=== PATIENT | female | born 1945 | race Caucasian/White ===

== ENCOUNTER → 2018-06-23 | Outpatient (CLI) | payer MEDICARE ==
[~2018-06-23] MED LIST: LIDOCAINE 1% MDV 20ML VIAL As Ordered
== END ==
LOC: M RADPRO 10:33
DX: N60.11 Diffuse cystic mastopathy of right breast (principal); Z79.01 Long term (current) use of anticoagulants; Z88.0 Allergy status to penicillin; E78.00 Pure hypercholesterolemia, unspecified; F41.9 Anxiety disorder, unspecified; F32.9 Major depressive disorder, single episode, unspecified; E11.9 Type 2 diabetes mellitus without complications; I48.91 Unspecified atrial fibrillation; Z95.0 Presence of cardiac pacemaker; Z90.710 Acquired absence of both cervix and uterus; Z86.79 Personal history of other diseases of the circulatory system
CPT/HCPCS: 19081

== ENCOUNTER → 2023-04-03 | Outpatient (REF) | payer MEDICARE ==
[2023-04-05 01:55] LABS: C REACTIVE PROTEIN QUANTITATIV 2.3 MG/DL (<1.0)
== END ==
LOC: M LAB REF 16:44
PROVIDERS: ATTEND Nurse Practitioner Family
DX: R06.02 Shortness of breath (principal)

== ENCOUNTER → 2023-08-03 | Outpatient (REF) | payer MEDICARE | LOC: M LAB REF 12:46 | PROVIDERS: ATTEND Internal Medicine Pulmonary Disease | DX: J47.9 Bronchiectasis, uncomplicated (principal) ==

== ENCOUNTER 2024-10-01 15:35 | Emergency (ER) | payer MEDICARE ==
[~2024-10-01] VITALS: Ht 162.6 cm; Wt 109.0 kg
[2024-10-01] MEDS ORDERED: CLOB0.0548 TOP (20:27)
[2024-10-01] MEDS ORDERED: TRIA1CR80 TOP (20:27)
[2024-10-01] MEDS ORDERED: CLIN-250 PO (20:27)
[2024-10-01] MEDS ORDERED: BUSP10TA PO (20:27)
[2024-10-01] MEDS ORDERED: MAGN400T35 PO (20:35)
[2024-10-01] MEDS ORDERED: TACROLIMUS TOP (20:35)
[2024-10-01] MEDS: ONDANSETRON 4MG 2ML VIAL IV ONE (20:47)
[2024-10-01] MEDS: MORPHINE 4 MG/ML 1ML VIAL IV ONE (20:48)
[2024-10-01] MEDS ORDERED: LEVA45AE INH (20:52)
[2024-10-01] MEDS ORDERED: ACET300T52 PO (20:52)
[2024-10-01] MEDS ORDERED: FAMO20TA4 PO (20:52)
[2024-10-01] MEDS ORDERED: CLOP75TA2 PO (20:52)
[2024-10-01] MEDS ORDERED: MUPI2OI TOP (20:52)
[2024-10-01] MEDS ORDERED: TUMS500C PO (20:52)
[2024-10-01] MEDS ORDERED: DOCU100C16 PO (20:52)
[2024-10-01] MEDS ORDERED: NEMO30PE SC (20:52)
[2024-10-01] MEDS ORDERED: MONT10TA97 PO (20:52)
[2024-10-01] MEDS ORDERED: ASCO500T PO (20:52)
[2024-10-01] MEDS ORDERED: NITR0.4S14 SL (20:53)
[2024-10-01] MEDS ORDERED: LEVOTAB10 PO (20:55)
[2024-10-01] MEDS ORDERED: VITAD1000T PO (20:55)
[2024-10-01] MEDS ORDERED: FEXO-111 PO (20:55)
[2024-10-01] MEDS ORDERED: BUME1TAB3 PO (21:09)
[2024-10-01] MEDS ORDERED: CLOB5CR TOP (21:09)
[2024-10-01] MEDS ORDERED: SPIR-10 PO (21:09)
[2024-10-01] MEDS ORDERED: HOME MED LIST COMPLETE! XX SCH (21:15)
[2024-10-01 21:29] LABS: BASO # 0.1 10^3/uL (0.0-0.2); BASO % 1.1 % (0.0-1.0); EOS # 0.4 10^3/uL (0.0-0.5); EOS % 4.1 % (0.0-3.0); HEMOGLOBIN 14.6 g/dl (12.0-15.5); LYMPH # 2.4 10^3/uL (1.5-5.0); LYMPH % 22.9 % (24.0-44.0); MEAN CORPUSCULAR HEMOGLOBIN 34.8 pg (27.0-33.0); MEAN CORPUSCULAR VOLUME 102.6 fl (80.0-96.0); MONO # 0.9 10^3/uL (0.0-0.8); MONO % 8.9 % (2.0-8.0); NEUTROPHILS # 6.4 10^3/uL (1.5-8.5); NEUTROPHILS % 61.8 % (36.0-66.0); PLATELET COUNT, AUTOMATED 293 10^3/uL (150-450); RED BLOOD COUNT 4.19 10^6/uL (4.00-5.40); WHITE BLOOD COUNT 10.4 10^3/uL (4.0-10.0)
[2024-10-01 21:46] LABS: CK-MB VALUE MASS < 1.0 NG/ML (<3.6)
[2024-10-01 21:48] LABS: BLOOD UREA NITROGEN 21 MG/DL (9-23); C REACTIVE PROTEIN QUANTITATIV 2.54 MG/DL (<1.0); CALCIUM LEVEL 8.9 MG/DL (8.3-10.6); CARBON DIOXIDE LEVEL 25 MMOL/L (20-31); CHLORIDE LEVEL 101 MMOL/L (98-107); CREATININE FOR GFR 0.84 MG/DL (0.55-1.30); GLOMERULAR FILTRATION RATE > 60.0 (>39); GLUCOSE, FASTING 116 MG/DL (74-106); POTASSIUM SERUM 4.7 MMOL/L (3.5-5.1); SODIUM LEVEL 135 MMOL/L (136-145)
[2024-10-01 22:01] LABS: CPK CREATINE PHOSPHOKINASE 393 U/L (34-145); MB/CK RELATIVE INDEX 0.25 (< OR =4)
[2024-10-01] MEDS: FUROSEMIDE 40MG/4ML VIAL IV ONE (23:45)
[2024-10-02] MEDS: ANEXSIA, NORCO 7.5MG/325MG TABLET(HYDROCODONE/APAP) PO ONE ×2 (01:34→05:44)
[2024-10-02] MEDS ORDERED: HYDR-3713 PO (05:09)
[2024-10-02 06:41] VITALS: BP 119/85; TEMP 98.5; O2SAT 95
== END 2024-10-02 06:44 | disposition home or self-care (01) ==
LOC: M ED 15:35 → EDBD 15:35 → M ED 10-02 06:44
DX: R06.02 Shortness of breath (principal); I50.22 Chronic systolic (congestive) heart failure; L30.9 Dermatitis, unspecified; M79.604 Pain in right leg; M79.605 Pain in left leg; I48.91 Unspecified atrial fibrillation; I25.119 Atherosclerotic heart disease of native coronary artery with unspecified angina pectoris; J44.9 Chronic obstructive pulmonary disease, unspecified; E55.9 Vitamin D deficiency, unspecified; F32.A Depression, unspecified; Z88.0 Allergy status to penicillin; Z88.2 Allergy status to sulfonamides; Z88.8 Allergy status to other drugs, medicaments and biological substances; Z79.1 Long term (current) use of non-steroidal anti-inflammatories (NSAID); Z79.899 Other long term (current) drug therapy
CPT/HCPCS: 71045; 80048; 82550; 82553; 83735; 83880; 84484; 85025; 86140; 87486; 87581; 87633; 87798; 93005; 96374; 96375; 99284; J1940; J2405

== ENCOUNTER → 2024-10-19 | Outpatient (REF) | payer MEDICARE ==
[~2024-10-19] MED LIST changes: +ACET300T52 PO; +ASCO500T PO; +BUME1TAB3 PO; +BUSP10TA PO; +CLIN-250 PO; +CLOB0.0548 TOP; +CLOB5CR TOP; +CLOP75TA2 PO; +DOCU100C16 PO; +FAMO20TA4 PO; +FEXO-111 PO; +FOLI1TAB11 PO; +FURO40TA2 PO; +GENT1OI TOP; +HYDR-3713 PO; +LEVA1.2526 INH; +LEVA45AE INH; +LEVO1TAB40 PO; +LEVOTAB10 PO; -LIDOCAINE 1% MDV 20ML VIAL As Ordered; +MAGN400T35 PO; +MONT10TA97 PO; +MUPI2OI TOP; +NEMO30PE SC; +NITR0.4S14 SL; +NITR50CA34 PO; +OYST1TAB PO; +SPIR-10 PO; +TACR0.1O TOP; +TACROLIMUS TOP; +TRIA1CR80 TOP; +TUMS500C PO; +VITA200028 PO; +VITAD1000T PO
== END ==
LOC: M SFHCDERM 17:03
PROVIDERS: ATTEND Physician Assistant
DX: L28.1 Prurigo nodularis (principal)

== ENCOUNTER 2024-10-22 19:17 | Inpatient (IN) | payer MEDICARE ==
[~2024-10-22] VITALS: Ht 162.6 cm; Wt 121.8 kg
[~2024-10-22 19:17] MED LIST changes: -FOLI1TAB11 PO; -FURO40TA2 PO; -GENT1OI TOP; -LEVA1.2526 INH; -LEVO1TAB40 PO; -NITR50CA34 PO; -OYST1TAB PO; -TACR0.1O TOP; -VITA200028 PO
[2024-10-22 20:44] LABS: VENOUS BASE EXCESS 2.3 (-2.0-2.0); VENOUS HCO3 27.7 MMOL/L (23.0-27.0); VENOUS PARTIAL PRESSURE CO2 46.1 mmHg (38.0-50.0); VENOUS PARTIAL PRESSURE O2 42.6 mmHg (30.0-50.0); VENOUS PH 7.397 UNITS (7.330-7.430); VENOUS STANDARD HCO3 25.9 MMOL/L; VENOUS TOTAL CO2 29.1 MMOL/L (24.0-28.0)
[2024-10-22 20:50] LABS: BASO # 0.1 10^3/uL (0.0-0.2); BASO % 1.1 % (0.0-1.0); EOS # 0.4 10^3/uL (0.0-0.5); EOS % 3.9 % (0.0-3.0); HEMATOCRIT 40.4 % (36.0-47.0); HEMOGLOBIN 13.6 g/dl (12.0-15.5); LYMPH # 1.7 10^3/uL (1.5-5.0); LYMPH % 17.2 % (24.0-44.0); MEAN CORPUSCULAR HEMOGLOBIN 35.1 pg (27.0-33.0); MEAN CORPUSCULAR HGB CONC 33.7 g/dl (32.0-36.5); MEAN CORPUSCULAR VOLUME 104.1 fl (80.0-96.0); MONO # 0.9 10^3/uL (0.0-0.8); MONO % 9.2 % (2.0-8.0); NEUTROPHILS # 6.6 10^3/uL (1.5-8.5); NEUTROPHILS % 67.1 % (36.0-66.0); PLATELET COUNT, AUTOMATED 266 10^3/uL (150-450); RED BLOOD COUNT 3.88 10^6/uL (4.00-5.40); WHITE BLOOD COUNT 9.8 10^3/uL (4.0-10.0)
[2024-10-22 21:13] LABS: CK-MB VALUE MASS < 1.0 NG/ML (<3.6)
[2024-10-22 21:14] LABS: ALBUMIN 2.7 G/DL (3.2-5.2); ALKALINE PHOSPHATASE 97 U/L (35-104); ALT/SGPT < 9 U/L (7.0-40); AST/SGOT 13 U/L (<34); BILIRUBIN,DIRECT 0.2 MG/DL (<0.4); BILIRUBIN,TOTAL 0.4 MG/DL (0.3-1.2); BLOOD UREA NITROGEN 13 MG/DL (9-23); CALCIUM LEVEL 8.9 MG/DL (8.3-10.6); CARBON DIOXIDE LEVEL 29 MMOL/L (20-31); CHLORIDE LEVEL 99 MMOL/L (98-107); CPK CREATINE PHOSPHOKINASE 354 U/L (34-145); CREATININE FOR GFR 1.06 MG/DL (0.55-1.30); GLOMERULAR FILTRATION RATE 53.4 (>39); GLUCOSE, FASTING 137 MG/DL (74-106); MB/CK RELATIVE INDEX 0.28 (< OR =4); SODIUM LEVEL 136 MMOL/L (136-145); TOTAL PROTEIN 7.8 G/DL (5.7-8.2)
[2024-10-22 21:16] LABS: THYROID STIMULATING HORMONE 1.257 uIU/ML (0.55-4.78)
[2024-10-22] MEDS: ANEXSIA, NORCO 7.5MG/325MG TABLET(HYDROCODONE/APAP) PO ONE (23:30)
[2024-10-23] MEDS: DOCUSATE SODIUM 100MG CAPSULE PO SCH (07:45)
[2024-10-23] MEDS ORDERED: NITROFURANTOIN (MACROBID) 100 MG CAP PO SCH (09:00)
[2024-10-23 10:13] LABS: BASO # 0.1 10^3/uL (0.0-0.2); BASO % 1.3 % (0.0-1.0); EOS # 0.4 10^3/uL (0.0-0.5); EOS % 3.9 % (0.0-3.0); HEMATOCRIT 41.4 % (36.0-47.0); HEMOGLOBIN 13.4 g/dl (12.0-15.5); LYMPH # 1.6 10^3/uL (1.5-5.0); MEAN CORPUSCULAR HEMOGLOBIN 34.4 pg (27.0-33.0); MEAN CORPUSCULAR HGB CONC 32.4 g/dl (32.0-36.5); MEAN CORPUSCULAR VOLUME 106.4 fl (80.0-96.0); MONO # 0.8 10^3/uL (0.0-0.8); MONO % 9.2 % (2.0-8.0); NEUTROPHILS # 6.1 10^3/uL (1.5-8.5); NEUTROPHILS % 66.8 % (36.0-66.0); PLATELET COUNT, AUTOMATED 257 10^3/uL (150-450); RED BLOOD COUNT 3.89 10^6/uL (4.00-5.40); WHITE BLOOD COUNT 9.1 10^3/uL (4.0-10.0)
[2024-10-23 10:42] LABS: ALBUMIN 2.6 G/DL (3.2-5.2); ALKALINE PHOSPHATASE 88 U/L (35-104); ALT/SGPT < 9 U/L (7.0-40); AST/SGOT 12 U/L (<34); BILIRUBIN,TOTAL 0.6 MG/DL (0.3-1.2); BLOOD UREA NITROGEN 12 MG/DL (9-23); CALCIUM LEVEL 9.1 MG/DL (8.3-10.6); CARBON DIOXIDE LEVEL 31 MMOL/L (20-31); CHLORIDE LEVEL 101 MMOL/L (98-107); CREATININE FOR GFR 0.87 MG/DL (0.55-1.30); GLOMERULAR FILTRATION RATE > 60.0 (>39); GLUCOSE, FASTING 113 MG/DL (74-106); MAGNESIUM LEVEL 1.8 MG/DL (1.8-2.4); POTASSIUM SERUM 4.4 MMOL/L (3.5-5.1); SODIUM LEVEL 138 MMOL/L (136-145); TOTAL PROTEIN 7.5 G/DL (5.7-8.2)
[2024-10-23] MEDS ORDERED: LEVO1TAB40 PO (10:45)
[2024-10-23] MEDS ORDERED: HYDR-3713 PO (10:45)
[2024-10-23] MEDS ORDERED: TACR0.1O TOP (10:45)
[2024-10-23] MEDS ORDERED: LEVA1.2526 INH (10:45)
[2024-10-23] MEDS ORDERED: GENT1OI TOP (10:45)
[2024-10-23] MEDS ORDERED: OYST1TAB PO (10:45)
[2024-10-23] MEDS ORDERED: VITA200028 PO (10:45)
[2024-10-23] MEDS ORDERED: FURO40TA2 PO (10:45)
[2024-10-23] MEDS ORDERED: NITR50CA34 PO (10:45)
[2024-10-23] MEDS ORDERED: FOLI1TAB11 PO (10:45)
[2024-10-23] MEDS ORDERED: HOME MED LIST COMPLETE! XX SCH (10:50)
[2024-10-23] MEDS ORDERED: NORCO, ANEXSIA 5/325MG TABLET (HYDROcodone/ACETAMINOPHEN) PO PRN (11:00)
[2024-10-23] MEDS ORDERED: NITROGLYCERIN 0.4MG SUBL TABLET SL PRN (11:00)
[2024-10-23 11:40] LABS: C REACTIVE PROTEIN QUANTITATIV 3.58 MG/DL (<1.0)
[2024-10-23 11:47] LABS: PROCALCITONIN 0.06 ng/ml
[2024-10-23] MEDS: MAGNESIUM OXIDE 400MG TAB (MAG-OX) PO SCH (12:17)
[2024-10-23] MEDS: OYSTER SHELL CALCIUM 500 MG TAB PO SCH (12:18)
[2024-10-23] MEDS: FEXOFENADINE 60MG TAB PO SCH (12:18)
[2024-10-23] MEDS: ACETAMINOPHEN 325 MG TAB PO PRN (12:18)
[2024-10-23] MEDS: ASCORBIC ACID 500 MG TAB PO SCH (12:18)
[2024-10-23] MEDS: MONTELUKAST 10 MG TAB PO SCH (12:18)
[2024-10-23] MEDS: ENOXAPARIN 40MG/0.4ML SYRINGE (J1650 PER 10MG) SC SCH (12:19)
[2024-10-23] MEDS: CLOPIDOGREL 75 MG TAB PO SCH (12:19)
[2024-10-23] MEDS: MUPIROCIN 2% OINT 22 GM TUBE TOP SCH (12:20)
[2024-10-23] MEDS: LevoFLOXacin 750 MG TABLET PO SCH (12:20)
[2024-10-23] MEDS: GENTAMICIN SULFATE 0.1% OINT 15GM TOP SCH (13:07)
[2024-10-23] MEDS: LINEZOLID 600MG TABLET (ZYVOX) PO SCH (13:07)
[2024-10-23] MEDS ORDERED: ISOVUE-370 76% 100ML VIAL As Ordered ONE (13:47)
[2024-10-23 14:23] LABS: ERYTHROCYTE SEDIMENTATION RATE > 130 mm/hr (0-30)
[2024-10-23 15:59] LABS: FOLATE 19.4 NG/ML (>5.4)
[2024-10-23 16:00] LABS: VITAMIN B12 LEVEL > 2000 PG/ML (211-911)
[2024-10-23] MEDS ORDERED: busPIRone 10 MG TAB PO SCH (21:00)
[2024-10-24] MEDS: TACROLIMUS 0.1% TOP SCH (09:00)
[2024-10-24] MEDS: MOM 30ML SUSPENSION UDC PO PRN (11:19)
[2024-10-24] MEDS: FAMOTIDINE 20 MG TAB PO PRN (11:19)
[2024-10-24] MEDS: CETIRIZINE (ZyrTEC) 10 MG TAB PO SCH (11:19)
[2024-10-24] MEDS: NORCO, ANEXSIA 5/325MG TABLET (HYDROcodone/ACETAMINOPHEN) PO PRN (16:29)
[2024-10-25] MEDS: FOLIC ACID 1MG TAB PO SCH (09:21)
[2024-10-25 11:01] LABS: BASO # 0.1 10^3/uL (0.0-0.2); BASO % 1.1 % (0.0-1.0); EOS # 0.4 10^3/uL (0.0-0.5); EOS % 4.4 % (0.0-3.0); HEMOGLOBIN 12.8 g/dl (12.0-15.5); LYMPH # 1.5 10^3/uL (1.5-5.0); MEAN CORPUSCULAR HEMOGLOBIN 34.1 pg (27.0-33.0); MEAN CORPUSCULAR VOLUME 106.7 fl (80.0-96.0); MONO # 0.7 10^3/uL (0.0-0.8); NEUTROPHILS # 6.8 10^3/uL (1.5-8.5); NEUTROPHILS % 70.4 % (36.0-66.0); PLATELET COUNT, AUTOMATED 254 10^3/uL (150-450); RED BLOOD COUNT 3.75 10^6/uL (4.00-5.40); WHITE BLOOD COUNT 9.6 10^3/uL (4.0-10.0)
[2024-10-25] MEDS: TRIAMCINOLONE ACET 0.1% CREAM 80GM TOP SCH (12:58)
[2024-10-25] MEDS: CLOBETASOL PROPIONATE EMOLLIENT 0.05% CR 60 GM TOP SCH (12:58)
[2024-10-25] MEDS: LEVALBUTEROL HFA 45MCG/ACT 15GM INHALER INH PRN (21:43)
[2024-10-26] MEDS: KETOROLAC TROMETHAMINE 10 MG TAB PO ONE (01:59)
[2024-10-26 09:11] LABS: HEMATOCRIT 41.6 % (36.0-47.0); HEMOGLOBIN 13.4 g/dl (12.0-15.5); MEAN CORPUSCULAR HEMOGLOBIN 34.1 pg (27.0-33.0); MEAN CORPUSCULAR HGB CONC 32.2 g/dl (32.0-36.5); MEAN CORPUSCULAR VOLUME 105.9 fl (80.0-96.0); PLATELET COUNT, AUTOMATED 267 10^3/uL (150-450); RED BLOOD COUNT 3.93 10^6/uL (4.00-5.40); WHITE BLOOD COUNT 8.5 10^3/uL (4.0-10.0)
[2024-10-26 09:36] LABS: BLOOD UREA NITROGEN 16 MG/DL (9-23); C REACTIVE PROTEIN QUANTITATIV 1.46 MG/DL (<1.0); CALCIUM LEVEL 8.4 MG/DL (8.3-10.6); CARBON DIOXIDE LEVEL 30 MMOL/L (20-31); CHLORIDE LEVEL 98 MMOL/L (98-107); CREATININE FOR GFR 0.91 MG/DL (0.55-1.30); GLOMERULAR FILTRATION RATE > 60.0 (>39); GLUCOSE, FASTING 92 MG/DL (74-106); POTASSIUM SERUM 4.8 MMOL/L (3.5-5.1); SODIUM LEVEL 134 MMOL/L (136-145)
[2024-10-26 15:50] VITALS: BP 105/58; TEMP 97.7; O2SAT 91
[2024-10-26 20:32] VITALS: BP 128/66; TEMP 97.9; O2SAT 93
[2024-10-26 20:38] LABS: T P ELECTROPHORESIS SO 7.7 g/dL (6.1-8.1)
[2024-10-26 20:49] LABS: C REACTIVE PROTEIN QUANTITATIV 1.45 MG/DL (<1.0)
[2024-10-26 21:40] LABS: COMPLEMENT C4 19.7 MG/DL (12-36); IMMUNOGLOBULIN A 423.3 MG/DL (40-350); IMMUNOGLOBULIN M 91.3 MG/DL (50-300)
[2024-10-27] MEDS: diphenhydrAMINE 50MG CAP PO PRN (00:36)
[2024-10-27 03:37] VITALS: BP 101/56; TEMP 98.1; O2SAT 65
[2024-10-27 05:13] LABS: HEMATOCRIT 39.6 % (36.0-47.0); HEMOGLOBIN 12.8 g/dl (12.0-15.5); MEAN CORPUSCULAR HEMOGLOBIN 34.5 pg (27.0-33.0); MEAN CORPUSCULAR HGB CONC 32.3 g/dl (32.0-36.5); MEAN CORPUSCULAR VOLUME 106.7 fl (80.0-96.0); PLATELET COUNT, AUTOMATED 188 10^3/uL (150-450); RED BLOOD COUNT 3.71 10^6/uL (4.00-5.40); WHITE BLOOD COUNT 8.5 10^3/uL (4.0-10.0)
[2024-10-27 05:38] LABS: BLOOD UREA NITROGEN 14 MG/DL (9-23); CALCIUM LEVEL 8.2 MG/DL (8.3-10.6); CARBON DIOXIDE LEVEL 22 MMOL/L (20-31); CHLORIDE LEVEL 104 MMOL/L (98-107); CREATININE FOR GFR 0.82 MG/DL (0.55-1.30); GLOMERULAR FILTRATION RATE > 60.0 (>39); GLUCOSE, FASTING 112 MG/DL (74-106); POTASSIUM SERUM 4.4 MMOL/L (3.5-5.1); SODIUM LEVEL 137 MMOL/L (136-145)
[2024-10-27] MEDS: methylPREDNISolone 125MG 2ML VIAL IV SCH (11:04)
[2024-10-27 12:00] VITALS: BP 119/56; TEMP 97.9; O2SAT 95
[2024-10-27] MEDS: NORCO, ANEXSIA 5/325MG TABLET (HYDROcodone/ACETAMINOPHEN) PO PRN (14:53)
[2024-10-27 17:17] LABS: ALBUMIN SPEP 3.1 g/dL (3.8-4.8); ALPHA-1-GLOBULINS SO 0.4 g/dL (0.2-0.3); BETA 2 GLOBULIN 0.5 g/dL (0.2-0.5); BETA-GLOBULIN SO 0.5 g/dL (0.4-0.6); GAMMA GLOBULINS SO 2.2 g/dL (0.8-1.7)
[2024-10-27 20:01] VITALS: BP_SYST 119; BP_SYST 122; BP_DIAS 57; BP_DIAS 81; TEMP 98.2; O2SAT 95
[2024-10-28] MEDS ORDERED: NALOXONE INJ 0.4MG/1ML VIAL IV PRN (03:20)
[2024-10-28 03:22] VITALS: BP 120/78; TEMP 98.1; O2SAT 95
[2024-10-28] MEDS: MORPHINE 2 MG/ML 1ML VIAL IV ONE (03:45)
[2024-10-28 05:01] LABS: HEMATOCRIT 36.5 % (36.0-47.0); HEMOGLOBIN 12.3 g/dl (12.0-15.5); MEAN CORPUSCULAR HGB CONC 33.7 g/dl (32.0-36.5); PLATELET COUNT, AUTOMATED 246 10^3/uL (150-450); RED BLOOD COUNT 3.51 10^6/uL (4.00-5.40); WHITE BLOOD COUNT 11.4 10^3/uL (4.0-10.0)
[2024-10-28 05:35] LABS: BLOOD UREA NITROGEN 15 MG/DL (9-23); CARBON DIOXIDE LEVEL 22 MMOL/L (20-31); CHLORIDE LEVEL 103 MMOL/L (98-107); CREATININE FOR GFR 0.75 MG/DL (0.55-1.30); GLOMERULAR FILTRATION RATE > 60.0 (>39); GLUCOSE, FASTING 122 MG/DL (74-106); MAGNESIUM LEVEL 2.1 MG/DL (1.8-2.4); POTASSIUM SERUM 4.5 MMOL/L (3.5-5.1); SODIUM LEVEL 133 MMOL/L (136-145)
[2024-10-28] MEDS ORDERED: NITROFURANTOIN (MACROBID) 100 MG CAP PO SCH (09:00)
[2024-10-28 12:00] VITALS: BP 114/57; TEMP 97.9; O2SAT 95
[2024-10-28 18:42] LABS: ANA SCREEN, IFA NEGATIVE (NEGATIVE)
[2024-10-28 20:40] VITALS: BP 112/57; TEMP 98.1; O2SAT 94
[2024-10-29] MEDS: MORPHINE 2 MG/ML 1ML VIAL IV ONE (02:15)
[2024-10-29 03:56] VITALS: BP 113/67; TEMP 97.9; O2SAT 95
[2024-10-29 07:06] LABS: HEMATOCRIT 37.2 % (36.0-47.0); HEMOGLOBIN 12.1 g/dl (12.0-15.5); MEAN CORPUSCULAR HEMOGLOBIN 34.4 pg (27.0-33.0); MEAN CORPUSCULAR HGB CONC 32.5 g/dl (32.0-36.5); MEAN CORPUSCULAR VOLUME 105.7 fl (80.0-96.0); PLATELET COUNT, AUTOMATED 248 10^3/uL (150-450); RED BLOOD COUNT 3.52 10^6/uL (4.00-5.40); WHITE BLOOD COUNT 11.8 10^3/uL (4.0-10.0)
[2024-10-29 07:29] LABS: BLOOD UREA NITROGEN 18 MG/DL (9-23); CALCIUM LEVEL 8.1 MG/DL (8.3-10.6); CARBON DIOXIDE LEVEL 24 MMOL/L (20-31); CHLORIDE LEVEL 104 MMOL/L (98-107); CREATININE FOR GFR 0.76 MG/DL (0.55-1.30); GLOMERULAR FILTRATION RATE > 60.0 (>39); GLUCOSE, FASTING 92 MG/DL (74-106); POTASSIUM SERUM 4.5 MMOL/L (3.5-5.1); SODIUM LEVEL 138 MMOL/L (136-145)
[2024-10-29 12:00] VITALS: BP 115/60; TEMP 97.7; O2SAT 95
[2024-10-29] MEDS ORDERED: FUROSEMIDE 40 MG TAB PO SCH (13:28)
[2024-10-29] MEDS: busPIRone 10 MG TAB PO SCH (14:16)
[2024-10-29] MEDS: FUROSEMIDE 40 MG TAB PO SCH (15:10)
[2024-10-29] MEDS: MORPHINE 2 MG/ML 1ML VIAL IV PRN (15:35)
[2024-10-29 20:47] VITALS: BP 105/48; TEMP 97.9; O2SAT 95
[2024-10-29] MEDS: SPIRONOLACTONE 25 MG TAB PO SCH (20:53)
[2024-10-30 04:27] VITALS: BP 113/67; TEMP 98.1; O2SAT 94
[2024-10-30 06:01] LABS: HEMATOCRIT 37.6 % (36.0-47.0); HEMOGLOBIN 12.1 g/dl (12.0-15.5); MEAN CORPUSCULAR HEMOGLOBIN 33.9 pg (27.0-33.0); MEAN CORPUSCULAR HGB CONC 32.2 g/dl (32.0-36.5); MEAN CORPUSCULAR VOLUME 105.3 fl (80.0-96.0); PLATELET COUNT, AUTOMATED 267 10^3/uL (150-450); RED BLOOD COUNT 3.57 10^6/uL (4.00-5.40); WHITE BLOOD COUNT 13.9 10^3/uL (4.0-10.0)
[2024-10-30 06:26] LABS: BLOOD UREA NITROGEN 21 MG/DL (9-23); CALCIUM LEVEL 8.1 MG/DL (8.3-10.6); CARBON DIOXIDE LEVEL 23 MMOL/L (20-31); CHLORIDE LEVEL 104 MMOL/L (98-107); CREATININE FOR GFR 0.75 MG/DL (0.55-1.30); GLOMERULAR FILTRATION RATE > 60.0 (>39); GLUCOSE, FASTING 99 MG/DL (74-106); MAGNESIUM LEVEL 1.9 MG/DL (1.8-2.4); POTASSIUM SERUM 4.6 MMOL/L (3.5-5.1); SODIUM LEVEL 138 MMOL/L (136-145)
[2024-10-30 16:18] LABS: COMPLEMENT TOTAL (CH50) 54 U/mL (31-60)
[2024-10-30 20:15] VITALS: BP 100/64; TEMP 97.9; O2SAT 96
[2024-10-30 21:22] VITALS: BP 146/65
[2024-10-30] MEDS: MORPHINE 2 MG/ML 1ML VIAL IV PRN (21:23)
[2024-10-31 03:40] VITALS: BP 143/73; TEMP 97.7; O2SAT 97
[2024-10-31 05:11] LABS: HEMATOCRIT 37.8 % (36.0-47.0); HEMOGLOBIN 12.4 g/dl (12.0-15.5); MEAN CORPUSCULAR HEMOGLOBIN 33.9 pg (27.0-33.0); MEAN CORPUSCULAR HGB CONC 32.8 g/dl (32.0-36.5); MEAN CORPUSCULAR VOLUME 103.3 fl (80.0-96.0); PLATELET COUNT, AUTOMATED 272 10^3/uL (150-450); RED BLOOD COUNT 3.66 10^6/uL (4.00-5.40)
[2024-10-31 05:37] LABS: BLOOD UREA NITROGEN 23 MG/DL (9-23); CALCIUM LEVEL 8.3 MG/DL (8.3-10.6); CARBON DIOXIDE LEVEL 24 MMOL/L (20-31); CHLORIDE LEVEL 104 MMOL/L (98-107); CREATININE FOR GFR 0.76 MG/DL (0.55-1.30); GLOMERULAR FILTRATION RATE > 60.0 (>39); GLUCOSE, FASTING 108 MG/DL (74-106); MAGNESIUM LEVEL 1.9 MG/DL (1.8-2.4); POTASSIUM SERUM 4.5 MMOL/L (3.5-5.1); SODIUM LEVEL 136 MMOL/L (136-145)
[2024-10-31] MEDS: NORCO, ANEXSIA 5/325MG TABLET (HYDROcodone/ACETAMINOPHEN) PO PRN ×2 (08:25→13:21)
[2024-10-31 20:13] VITALS: BP 110/55; TEMP 97.2; O2SAT 98
[2024-10-31] MEDS: RAMELTEON 8 MG TAB (ROZEREM) PO SCH (20:21)
[2024-11-01 03:09] VITALS: BP 138/70
[2024-11-01 03:10] VITALS: BP 138/70; TEMP 97.5; O2SAT 97
[2024-11-01 06:39] LABS: HEMATOCRIT 36.8 % (36.0-47.0); HEMOGLOBIN 12.4 g/dl (12.0-15.5); MEAN CORPUSCULAR HEMOGLOBIN 34.6 pg (27.0-33.0); MEAN CORPUSCULAR HGB CONC 33.7 g/dl (32.0-36.5); MEAN CORPUSCULAR VOLUME 102.8 fl (80.0-96.0); PLATELET COUNT, AUTOMATED 272 10^3/uL (150-450); RED BLOOD COUNT 3.58 10^6/uL (4.00-5.40); WHITE BLOOD COUNT 17.4 10^3/uL (4.0-10.0)
[2024-11-01 07:16] LABS: BLOOD UREA NITROGEN 26 MG/DL (9-23); CARBON DIOXIDE LEVEL 26 MMOL/L (20-31); CHLORIDE LEVEL 104 MMOL/L (98-107); CREATININE FOR GFR 0.75 MG/DL (0.55-1.30); GLOMERULAR FILTRATION RATE > 60.0 (>39); GLUCOSE, FASTING 93 MG/DL (74-106); POTASSIUM SERUM 4.7 MMOL/L (3.5-5.1); SODIUM LEVEL 137 MMOL/L (136-145)
[2024-11-01 07:35] LABS: C REACTIVE PROTEIN QUANTITATIV < 0.50 MG/DL (<1.0)
[2024-11-01 07:42] LABS: PROCALCITONIN 0.05 ng/ml
[2024-11-01 08:32] LABS: ANTI-SMOOTH MUSCLE ANTIBODY 28 U (<20)
[2024-11-01] MEDS: predniSONE 20 MG TAB PO SCH (08:56)
[2024-11-01 11:56] VITALS: BP 134/70; TEMP 96.6; O2SAT 94
[2024-11-01] MEDS: KETOROLAC 30 MG/ML 1ML VIAL IV ONE (15:42)
[2024-11-01 20:48] VITALS: BP 121/66; TEMP 97; O2SAT 95
[2024-11-02 01:03] LABS: ANCA SCREEN P-ANCA POS (Negative)
[2024-11-02 03:53] VITALS: BP 122/64; TEMP 97.7; O2SAT 96
[2024-11-02 05:25] LABS: HEMATOCRIT 36.4 % (36.0-47.0); MEAN CORPUSCULAR HEMOGLOBIN 34.1 pg (27.0-33.0); MEAN CORPUSCULAR VOLUME 103.4 fl (80.0-96.0); PLATELET COUNT, AUTOMATED 267 10^3/uL (150-450); RED BLOOD COUNT 3.52 10^6/uL (4.00-5.40); WHITE BLOOD COUNT 16.5 10^3/uL (4.0-10.0)
[2024-11-02 05:49] LABS: BLOOD UREA NITROGEN 29 MG/DL (9-23); CALCIUM LEVEL 7.9 MG/DL (8.3-10.6); CARBON DIOXIDE LEVEL 25 MMOL/L (20-31); CHLORIDE LEVEL 102 MMOL/L (98-107); CREATININE FOR GFR 0.79 MG/DL (0.55-1.30); GLOMERULAR FILTRATION RATE > 60.0 (>39); GLUCOSE, FASTING 100 MG/DL (74-106); MAGNESIUM LEVEL 2.2 MG/DL (1.8-2.4); POTASSIUM SERUM 4.6 MMOL/L (3.5-5.1); SODIUM LEVEL 136 MMOL/L (136-145)
[2024-11-02 08:16] LABS: APTT APSCOMP 37 sec (<=40); DRVTT Screen Seconds 32 sec (<=45)
[2024-11-02] MEDS: PANTOPRAZOLE 40MG TAB (PROTONIX) PO SCH (09:59)
[2024-11-02 12:38] VITALS: BP 119/66; TEMP 97.7; O2SAT 92
[2024-11-02] MEDS: SUCRALFATE SUSP 1GM/10ML UD PO SCH (12:47)
[2024-11-02] MEDS: PREGABALIN 25 MG CAP (LYRICA) PO SCH (12:47)
[2024-11-02 22:11] VITALS: BP 130/90; TEMP 97.6; O2SAT 95
[2024-11-03 04:00] VITALS: BP 137/75; TEMP 97.5; O2SAT 96
[2024-11-03 06:48] LABS: Anticardiolipin Ab, IGG < 2.0 GPL-U/mL (<20.0); Anticardiolipin Ab, IGM < 2.0 MPL-U/mL (<20.0); Anticardiolipin Ab, IgA < 2.0 APL-U/mL (<20.0); Beta-2 GLYCOPROTEIN I, IGG < 2.0 U/mL (<20.0); Beta-2 Glycoprotein I, IGA < 2.0 U/mL (<20.0); Beta-2 Glycoprotein I, IGM < 2.0 U/mL (<20.0)
[2024-11-03 07:47] VITALS: BP 103/49; TEMP 97.7; O2SAT 97
[2024-11-03] MEDS: oxyCODONE 10 MG CR TAB PO SCH (09:15)
[2024-11-03 12:00] VITALS: BP 103/51; TEMP 98.6; O2SAT 94
[2024-11-03 19:44] VITALS: BP 101/51; TEMP 97; O2SAT 96
[2024-11-04] VITALS (8 sets, daily range): BP systolic 88–121; BP diastolic 42–70; TEMP 97.3–100.3; O2SAT 92–97
[2024-11-04] MEDS: NS (Normal Saline) 0.9% 1,000 ML IV ONE ×3 (09:31→18:00)
[2024-11-04 09:54] LABS: HEMATOCRIT 38.2 % (36.0-47.0); HEMOGLOBIN 12.9 g/dl (12.0-15.5); MEAN CORPUSCULAR HEMOGLOBIN 34.3 pg (27.0-33.0); MEAN CORPUSCULAR HGB CONC 33.8 g/dl (32.0-36.5); MEAN CORPUSCULAR VOLUME 101.6 fl (80.0-96.0); PLATELET COUNT, AUTOMATED 290 10^3/uL (150-450); RED BLOOD COUNT 3.76 10^6/uL (4.00-5.40); WHITE BLOOD COUNT 15.8 10^3/uL (4.0-10.0)
[2024-11-04 10:11] LABS: BLOOD UREA NITROGEN 22 MG/DL (9-23); C REACTIVE PROTEIN QUANTITATIV < 0.50 MG/DL (<1.0); CARBON DIOXIDE LEVEL 26 MMOL/L (20-31); CHLORIDE LEVEL 102 MMOL/L (98-107); CREATININE FOR GFR 0.69 MG/DL (0.55-1.30); GLOMERULAR FILTRATION RATE > 60.0 (>39); GLUCOSE, FASTING 116 MG/DL (74-106); MAGNESIUM LEVEL 1.9 MG/DL (1.8-2.4); POTASSIUM SERUM 4.3 MMOL/L (3.5-5.1); SODIUM LEVEL 136 MMOL/L (136-145)
[2024-11-04 10:25] LABS: ATYPICAL LYMPH 1 % (0-5); BASOPHILS 2 % (0-1); EOSINOPHILS 3 % (0-3); LYMPHOCYTES 25 % (16-44); METAMYELOCYTES 2 % (0-0); MONOCYTES 8 % (0-5); NEUTROPHILS 55 % (28-66)
[2024-11-04 10:26] LABS: PLATELET ESTIMATE NORMAL (NORMAL)
[2024-11-04 10:27] LABS: ANISOCYTOSIS 2+
[2024-11-04 10:38] LABS: CK-MB VALUE MASS < 1.0 NG/ML (<3.6); CPK CREATINE PHOSPHOKINASE 243 U/L (34-145); MB/CK RELATIVE INDEX 0.41 (< OR =4)
[2024-11-04 10:47] LABS: PROCALCITONIN 0.08 ng/ml
[2024-11-04] MEDS: LACTULOSE 20GM/30ML SYRUP UDC PO SCH (14:34)
[2024-11-04] MEDS ORDERED: KETOROLAC 30 MG/ML 1ML VIAL IV ONE (22:00)
[2024-11-04] MEDS ORDERED: PILL CUTTER 1 EACH XX PRN (22:05)
[2024-11-04] MEDS: traMADol 50 MG TAB PO ONE (22:32)
[2024-11-05] VITALS (9 sets, daily range): BP systolic 102–125; BP diastolic 52–69; TEMP 97–100.4; O2SAT 91–95
[2024-11-05] MEDS: ULTRACET TAB PO ONE (01:07)
[2024-11-05] MEDS: ACETAMINOPHEN 325 MG TAB PO ONE (01:08)
[2024-11-05 03:10] LABS: APPEARANCE, URINE CLEAR (CLEAR); BACTERIA, URINE AUTO NEGATIVE (NEGATIVE); BILIRUBIN, URINE AUTO NEGATIVE (NEGATIVE); BLOOD, URINE BLOOD NEGATIVE (NEGATIVE); COLOR, URINE STRAW (YELLOW); GLUCOSE, URINE (UA) AUTO NEGATIVE (NEGATIVE); KETONE, URINE AUTO NEGATIVE (NEGATIVE); LEUKOCYTE ESTERASE, URINE AUTO TRACE (NEGATIVE); NITRITE, URINE AUTO NEGATIVE (NEGATIVE); PROTEIN, URINE AUTO NEGATIVE (NEGATIVE); RBC, URINE AUTO 0 /HPF (0-3); SQUAMOUS EPITHELIAL CELL UR AU 3 /HPF (0-6); UROBILINOGEN, URINE AUTO 0.2 mg/dL (0.0-2.0); WBC, URINE AUTO 1 /HPF (0-3)
[2024-11-05 05:52] LABS: BASO # 0.2 10^3/uL (0.0-0.2); EOS # 0.4 10^3/uL (0.0-0.5); EOS % 2.6 % (0.0-3.0); HEMATOCRIT 37.6 % (36.0-47.0); HEMOGLOBIN 12.4 g/dl (12.0-15.5); LYMPH # 3.1 10^3/uL (1.5-5.0); LYMPH % 18.6 % (24.0-44.0); MEAN CORPUSCULAR HEMOGLOBIN 34.5 pg (27.0-33.0); MEAN CORPUSCULAR VOLUME 104.7 fl (80.0-96.0); MONO # 1.3 10^3/uL (0.0-0.8); MONO % 7.9 % (2.0-8.0); NEUTROPHILS # 10.8 10^3/uL (1.5-8.5); NEUTROPHILS % 64.4 % (36.0-66.0); PLATELET COUNT, AUTOMATED 273 10^3/uL (150-450); RED BLOOD COUNT 3.59 10^6/uL (4.00-5.40); WHITE BLOOD COUNT 16.8 10^3/uL (4.0-10.0)
[2024-11-05 05:59] LABS: C REACTIVE PROTEIN QUANTITATIV 0.52 MG/DL (<1.0); INR 1.05; PARTIAL THROMBOPLASTIN TIME 24.2 SECONDS (24.8-34.2)
[2024-11-05 06:00] LABS: ALBUMIN 2.4 G/DL (3.2-5.2); ALKALINE PHOSPHATASE 62 U/L (35-104); ALT/SGPT 12 U/L (7.0-40); AST/SGOT 12 U/L (<34); BILIRUBIN,TOTAL 0.3 MG/DL (0.3-1.2); BLOOD UREA NITROGEN 18 MG/DL (9-23); CALCIUM LEVEL 7.7 MG/DL (8.3-10.6); CARBON DIOXIDE LEVEL 22 MMOL/L (20-31); CHLORIDE LEVEL 104 MMOL/L (98-107); CREATININE FOR GFR 0.63 MG/DL (0.55-1.30); GLOMERULAR FILTRATION RATE > 60.0 (>39); GLUCOSE, FASTING 114 MG/DL (74-106); POTASSIUM SERUM 4.6 MMOL/L (3.5-5.1); SODIUM LEVEL 136 MMOL/L (136-145); TOTAL PROTEIN 6.5 G/DL (5.7-8.2)
[2024-11-05] MEDS: oxyCODONE 5MG TAB PO PRN (09:33)
[2024-11-05] MEDS: LevoFLOXacin 750 MG TABLET PO SCH (12:11)
[2024-11-05 18:34] LABS: HEPATITIS B SURFACE ANTIGEN NEGATIVE (NEGATIVE)
[2024-11-05 18:47] LABS: HIV 1&2 SCREEN NEGATIVE (NEGATIVE)
[2024-11-05 18:55] LABS: HEPATITIS C VIRUS ABY INDEX 0.05 INDEX (<0.8)
[2024-11-06] VITALS (7 sets, daily range): BP systolic 93–106; BP diastolic 49–57; TEMP 98.6–100.5; O2SAT 92–94
[2024-11-06] MEDS: ACETAMINOPHEN 325 MG TAB PO ONE (06:24)
[2024-11-06] MEDS ORDERED: ACETAMINOPHEN 325 MG TAB PO PRN (10:40)
[2024-11-06] MEDS: oxyCODONE 5MG TAB PO PRN (12:53)
[2024-11-07 04:00] VITALS: BP 114/71; TEMP 97.5; O2SAT 93
[2024-11-07] MEDS: CEFDINIR 300 MG CAP (OMNICEF) PO SCH (08:28)
[2024-11-07 09:18] LABS: PROTEIN, TOTAL SO 6.9 g/dL (6.1-8.1)
[2024-11-07 12:00] VITALS: BP 112/72; TEMP 97.5; O2SAT 91
[2024-11-07 14:26] VITALS: TEMP 100.2
[2024-11-07 20:20] VITALS: BP 110/70; TEMP 97.3; O2SAT 96
[2024-11-07 23:22] LABS: HEPATITIS B CORE ANTIBODY IGG NON-REACTIVE (NON-REACTIVE)
[2024-11-08 04:42] VITALS: BP 109/69; TEMP 97.9; O2SAT 96
[2024-11-08 12:00] VITALS: BP 112/69; TEMP 97.9; O2SAT 97
[2024-11-08] MEDS: LevoFLOXacin 750 MG TABLET PO SCH (12:47)
[2024-11-08 21:08] VITALS: BP 120/70; TEMP 100; O2SAT 90
[2024-11-08] MEDS: LINEZOLID 600MG TABLET (ZYVOX) PO SCH (21:33)
[2024-11-09] MEDS: MAALOX 30 ML SUSP *UDC PO PRN (02:18)
[2024-11-09 04:26] VITALS: BP 121/72; TEMP 97; O2SAT 95
[2024-11-09] MEDS: predniSONE 50 MG TAB PO SCH (08:27)
[2024-11-09 12:32] LABS: PROTEIN CREATININE RATIO 288 mg/g creat (24-184); T PROTEIN CREATININE RATIO 0.288 (0.024-0.184); UPEP CREATININE 59 mg/dL (20-275); UPEP TOTAL PROTEIN 17 mg/dL (5-24)
[2024-11-09 13:21] LABS: ALBUMIN SO 3.2 g/dL (3.8-4.8); ALPHA 1 GLOBULINS SO 0.3 g/dL (0.2-0.3); BETA 2 GLOBULIN SO 0.4 g/dL (0.2-0.5); BETA GLOBULIN SO 0.4 g/dL (0.4-0.6); GAMMA GLOBULINS SO 1.7 g/dL (0.8-1.7)
[2024-11-10 03:10] VITALS: BP 124/73; TEMP 98.6; O2SAT 94
[2024-11-10 09:37] LABS: UPEP ALBUMIN 26 %; URINE ALPHA 1 GLOBULIN 14 %; URINE ALPHA 2 GLOBULIN 16 %; URINE BETA GLOBULIN 17 %; URINE GAMMA GLOBULIN 26 %
[2024-11-10 12:02] LABS: Antimyeloperxidase(MPO) Abs < 1.0 AI (<1.0); Antiproteinase 3 (PR-3) Abs 2.8 AI (<1.0)
[2024-11-11 04:00] VITALS: BP 114/61; TEMP 97.7; O2SAT 96
[2024-11-12 04:01] VITALS: BP 113/61; TEMP 97.5; O2SAT 96
[2024-11-12] MEDS ORDERED: PANT40TA29 PO (06:54)
[2024-11-12] MEDS ORDERED: SUCR1ORA PO (06:54)
[2024-11-12] MEDS ORDERED: LINE1TAB6 PO (06:54)
[2024-11-12] MEDS ORDERED: CEFD300CAP PO (06:54)
[2024-11-12] MEDS ORDERED: PRED20TA PO (08:52)
[2024-11-12] MEDS ORDERED: PROBCAP14 PO (08:55)
[2024-11-12] MEDS ORDERED: HYDR-3363 PO (10:32)
[2024-11-12] MEDS ORDERED: OXYC-517 PO (10:32)
[2024-11-12] MEDS: oxyCODONE 5MG TAB PO ONE (11:09)
[2024-11-13] MEDS ORDERED: predniSONE 20 MG TAB PO SCH (09:00)
[2024-11-14 01:07] LABS: ANCA SCREEN REFLEX P-ANCA POS (Negative); Perinuclear (P-ANCA) >=1:640 Titer (<1:20)
== END 2024-11-12 11:38 | DRG 546 ==
LOC: M ED 19:17 → M ED INP 19:18 → M MSPAV 10-26 15:53 → OBSVTOIN 10-27 12:08
PROVIDERS: ADMIT Internal Medicine; ATTEND Student in an Organized Health Care Education/Training Program
PROC: B246ZZZ Ultrasonography of Right and Left Heart (ICD-10-PCS; principal; 2024-10-23)
PROC: 0HBHXZX Excision of Right Upper Leg Skin, External Approach, Diagnostic (ICD-10-PCS; 2024-10-24)
PROC: 0HBHXZX Excision of Right Upper Leg Skin, External Approach, Diagnostic (ICD-10-PCS; 2024-10-28)
DX: M35.9 Systemic involvement of connective tissue, unspecified (principal); L97.928 Non-pressure chronic ulcer of unspecified part of left lower leg with other specified severity; L97.918 Non-pressure chronic ulcer of unspecified part of right lower leg with other specified severity; L88 Pyoderma gangrenosum; E87.20 Acidosis, unspecified; I50.32 Chronic diastolic (congestive) heart failure; J84.10 Pulmonary fibrosis, unspecified; F31.9 Bipolar disorder, unspecified; I48.91 Unspecified atrial fibrillation; I11.0 Hypertensive heart disease with heart failure; J47.9 Bronchiectasis, uncomplicated; F41.9 Anxiety disorder, unspecified; Z66 Do not resuscitate; M79.7 Fibromyalgia; K21.9 Gastro-esophageal reflux disease without esophagitis; M25.572 Pain in left ankle and joints of left foot; I27.20 Pulmonary hypertension, unspecified; I49.5 Sick sinus syndrome; B96.20 Unspecified Escherichia coli [E. coli] as the cause of diseases classified elsewhere; I05.1 Rheumatic mitral insufficiency; B96.5 Pseudomonas (aeruginosa) (mallei) (pseudomallei) as the cause of diseases classified elsewhere; M19.90 Unspecified osteoarthritis, unspecified site; B95.2 Enterococcus as the cause of diseases classified elsewhere; K74.60 Unspecified cirrhosis of liver; K57.30 Diverticulosis of large intestine without perforation or abscess without bleeding; I95.2 Hypotension due to drugs; E78.5 Hyperlipidemia, unspecified; E86.1 Hypovolemia; K59.00 Constipation, unspecified; Z95.0 Presence of cardiac pacemaker; Z86.14 Personal history of Methicillin resistant Staphylococcus aureus infection; Z88.0 Allergy status to penicillin; Z88.2 Allergy status to sulfonamides; Z88.8 Allergy status to other drugs, medicaments and biological substances; Z79.02 Long term (current) use of antithrombotics/antiplatelets; Z79.899 Other long term (current) drug therapy; Z74.1 Need for assistance with personal care; Z87.442 Personal history of urinary calculi; Z98.41 Cataract extraction status, right eye; Z98.42 Cataract extraction status, left eye

== ENCOUNTER → 2024-12-02 | Outpatient (REF) | payer MEDICARE ==
[~2024-12-02] MED LIST changes: +CEFD300CAP PO; +FOLI1TAB11 PO; +FURO40TA2 PO; +GENT1OI TOP; +HYDR-3363 PO; +LEVA1.2526 INH; +LEVO1TAB40 PO; +LINE1TAB6 PO; +NITR50CA34 PO; +OXYC-517 PO; +OYST1TAB PO; +PANT40TA29 PO; +PRED20TA PO; +PROBCAP14 PO; +SUCR1ORA PO; +TACR0.1O TOP; +VITA200028 PO
== END ==
LOC: M SFHCDERM 16:42
PROVIDERS: ATTEND Physician Assistant
DX: T14.8XXA Other injury of unspecified body region, initial encounter (principal)